=== PATIENT | female | born 1975 | race Caucasian/White ===

== ENCOUNTER 2017-08-01 17:08 | Inpatient (IN) | payer OTHER ==
[2017-08-01 17:35] VITALS: BMI 30.2
[2017-08-01] MEDS: Lactated Ringer's 1,000 ML IV SCH (17:45)
[2017-08-01] MEDS ORDERED: AMPicillin 2 GM in Sodium Chloride 0.9% 100 ML IVPB ONE (18:07)
[2017-08-01 18:11] LABS: BASO # 0.1 K/uL (0.0-0.2); BASO % 0.5 % (0.0-2.0); EOS # 0.4 K/uL (0.0-0.7); EOS % 4.3 % (0.0-4.0); HEMOGLOBIN 12.9 g/dL (12.0-16.0); LYMPH # 1.7 K/uL (1.0-4.3); LYMPH % 18.1 % (20.0-40.0); MEAN CELL VOLUME 90.3 fl (81.0-99.0); MEAN CORPUSCULAR HEMOGLOBIN 30.3 pg (27.0-31.0); MEAN CORPUSCULAR HGB CONC 33.5 g/dL (33.0-37.0); MONO # 0.8 K/uL (0.0-0.8); MONO % 8.4 % (0.0-10.0); NEUT # 6.5 K/uL (1.8-7.0); NEUT % 68.7 % (50.0-75.0); NRBC % 0.1 % (0.0-0.0); RBC 4.25 Mil/uL (3.80-5.20); RED CELL DISTRIBUTION WIDTH 14.9 % (11.5-14.5); WHITE BLOOD COUNT 9.4 K/uL (4.8-10.8)
--- NOTE | 2017-08-01 20:30 | OBADHP ---
Datetime: 08/01/2017 20:07 IP Chief Complaint Other: oligohydramnios/thyroid disease/AMA IP Adm Impression Other: olygohydramnios/thyroid disease Admit Comment, IP Provider: start on Cervidil induction Extremities - PN: Normal Abdomen - PN: Abnormal Back - PN: Normal Lungs - PN: Normal Heart - PN: Normal Thyroid - PN: Normal Neurologic - PN: Normal HEENT - PN: Normal General - PN: Normal Presentation-Admit: Cephalic FHR - Baseline A Provider: 140/150 Membranes, Provider: Intact Contraction Comments Provider: maryg Comments, ACOG Physical Exam: Abd gravid NT, sono confirmed cephalic presentation, ext no calf tende rness Gestation - Est Wks by US: 39.0 Pool Provider: Negative IP Hx Assessment: The History has been Reviewed and is Current Vital Signs Provider: Reviewed IP Chief Complaint: Other NICHD Variability Prov Fetus A: Moderate 6-25bpm NICHD Accel Fetus A IP Provider: 10X10 NICHD Decel Fetus A IP Provider: None Dilatation, Provider: FT Effacement, Provider: 20 Station, Provider: H Genitourinary Exam: Normal DTRs - PN: Normal IP Adm Impression: Term, intrauterine IP Admit Plan: Admit to unit; Initiate labor induction protocol
[2017-08-01] MEDS: AMPicillin 1 GM in Sodium Chloride 0.9% 100 ML IVPB SCH (22:30)
[2017-08-02] MEDS ORDERED: Oxytocin 30 units/LR 500ML 30 U/500 ML BAG IV ONE (01:03)
[2017-08-02] MEDS: AMPicillin 1 GM in Sodium Chloride 0.9% 100 ML IVPB SCH ×5 (02:35→18:23)
[2017-08-02] MEDS: Lactated Ringer's 1,000 ML IV SCH ×3 (02:37→18:15)
[2017-08-02] MEDS ORDERED: Fentanyl/Bupivacaine HCl 250 ML EPI ONE (18:22)
[2017-08-02] MEDS ORDERED: Lidocaine 1% Inj (20ml) ONE (21:58)
[2017-08-02] MEDS ORDERED: Oxycodone/Acetaminophen 5/325 mg Tab PO PRN (22:47)
--- NOTE | 2017-08-02 22:47 | OBDS ---
DELIVERY PERSONNEL Delivery Doctor: Vasu Smith MD Staple Cutter: Mirta Guerra RN Anesthesiologist: Indu MATERNAL INFORMATION Delivery Anesthesia: Epidural Medications in Delivery: Oxytocin 30 units Estimated Blood Loss (ml): QBL- 200 Placenta Cultured: No Maternal Complications: None Provider Comments: Delivered a living baby boy appears term cried spontaneously 9/9, AF scanty but clear Placenta complete and intact Small superficial vaginal-perineal tear noted and repaired as above Uterus contracted well no complications Tolerated procedure well. LABOR SUMMARY EDC: 08/07/2017 00:00 No. Babies in Womb: 1 Attempted: No Labor Anesthesia: Epidural LABOR INFORMATION Reason for Induction: Oligohydramnios Reason for Induction Other: AMA/thyroid disease Onset of Labor: 08/02/2017 17:43 Complete Dilatation: 08/02/2017 21:50 Cervical Ripening Agents: Cervidil Oxytocin: N/A Group B Beta Strep: Positive Antibiotics # of Doses: 5 Antibiotics Time of Last Dose: 1630 Steroids Given: None Reason Steroids Not Administered: Not Applicable MEMBRANES Membranes Rupture Method: Spontaneous Rupture of Membranes: 08/02/2017 19:49 Length of Rupture (hrs): 2.48 Amniotic Fluid Color: Clear Amniotic Fluid Amount: Scant Amniotic Fluid Odor: Normal STAGES OF LABOR Stage 1 hrs: 4 Stage 1 min: 7 Stage 2 hrs: 0 Stage 2 min: 28 Stage 3 hrs: 0 Stage 3 min: 7 Total Time in Labor hrs: 4 Total Time in Labor min: 42 VAGINAL DELIVERY Episiotomy: None Laceration Extension: First Degree Laceration Type: Perineal; Vaginal Laceration Repair: Yes Laceration Repair Note: small superficial vaginal/peineal laceration noted and repaired using a 2-0 chromic suture without any complications Initial Vag Sponge Count: 5 Final Vag Sponge Count: 5 Initial Vag Sharps Count: 1 Final Vag Sharps Count: 1 Sponge Count Correct: Yes Sharps Count Correct: Yes Count Comment: count correct and verified by RN CSECTION DELIVERY Primary Indication: N/A Secondary Indication: N/A CSection Incision: N/A Uterine Closure: N/A BABY A INFORMATION Infant Delivery Date/Time: 08/02/2017 22:18 Method of Delivery: Vaginal Born in Route : No : N/A Forceps: N/A Vacuum Extraction: N/A Shoulder Dystocia : No SHOULDER DYSTOCIA BABY A Infant Delivery Date/Time: 08/02/2017 22:18 PRESENTATION/POSITION BABY A Presentation: Cephalic Cephalic Presentation: Vertex Vertex Position: Left Occipital Anterior PLACENTA INFORMATION BABY A Placenta Delivery Time : 08/02/2017 22:25 Placenta Method of Delivery: Spontaneous Placenta Status: Delivered SCORES BABY A Heart Rate 1 min: >100 bpm Resp Effort 1 min: Good Cry Reflex Irritability 1 min: Cough or Sneeze or Pulls Away Muscle Tone 1 min: Active Motion Color 1 min: Body [place], Extremities Blue Resuscitation Effort 1 min: Tactile Stimulation SCORE 1 MIN: 9 Heart Rate 5 min: >100 bpm Resp Effort 5 min: Good Cry Reflex Irritability 5 min: Cough or Sneeze or Pulls Away Muscle Tone 5 min: Active Motion Color 5 min: Body [place], Extremities Blue Resuscitation Effort 5 min: Tactile Stimulation SCORE 5 MIN: 9 INFORMATION BABY A Gestational Age at Delivery: 39.2 Gestational Status: Term Infant Outcome : Liveborn Condition : Stable Sex: Male IDENTIFICATION/MEDS BABY A ID Band Number: [id number] ID Band Location: Left Leg; Left Arm WEIGHT/LENGTH BABY A Infant Birthweight (gms): 3235 Weight (lb): 7 Weight (oz): 2 CORD INFORMATION BABY A No. Cord Vessels: 3 Nuchal Cord : N/A Cord Blood Taken: Yes Suction: None ASSESSMENT BABY A Infant Complications: None Physical Findings at Delivery: Within Normal Limits Respirations: Appears Normal [facility] Called : No Transferred To: Remains with Mother
[2017-08-03] MEDS: Oxycodone/Acetaminophen 5/325 mg Tab PO PRN ×3 (01:05→09:51)
[2017-08-03] MEDS: Levothyroxine 112 MCG TAB PO SCH (06:43)
--- NOTE | 2017-08-03 08:50 | OBPPN ---
Datetime: 08/03/2017 08:45 PP Pain Prov: Within normal limits PP Pain Prov comment: No SOB, chest or leg pains PP Nausea Prov: Denies PP Flatus Prov: No PP Nausea Prov comment: no n/v PP Breasts Prov: Normal PP Lungs Prov: Normal PP Abdomen/Uterus Prov: Abnormal PP Vulva/Perineum Prov: Abnormal PP CVA Tenderness Prov: Normal PP Extremities Prov: Normal PP C/S Incision Prov: Not Applicable PP Progress Prov: Normal PP Comments Phys Exam Prov: breast NT not engorged Abd soft ND fundus firm below the umb Perineum re paired Ext no calf tenderness PP Impression Prov: Normal progression PP Plan Prov: Continue present management PP Progress Note Prov: CBC this am OOB and ambulation IP PP Procedures: None Vital Signs Provider PP: Reviewed
[2017-08-03 10:29] LABS: HEMOGLOBIN 11.4 g/dL (12.0-16.0); MEAN CELL VOLUME 90.5 fl (81.0-99.0); MEAN CORPUSCULAR HEMOGLOBIN 30.7 pg (27.0-31.0); RBC 3.71 Mil/uL (3.80-5.20); RED CELL DISTRIBUTION WIDTH 14.9 % (11.5-14.5); WHITE BLOOD COUNT 12.8 K/uL (4.8-10.8)
[2017-08-04] MEDS: Levothyroxine 112 MCG TAB PO SCH (06:39)
--- NOTE | 2017-08-04 10:30 | OBPPN ---
Datetime: 08/04/2017 10:26 PP Pain Prov: Within normal limits PP Pain Prov comment: No SOB, chest pains or leg pains PP Nausea Prov: Denies PP Flatus Prov: Yes PP Breasts Prov: Normal PP Heart Prov: Normal PP Lungs Prov: Normal PP Abdomen/Uterus Prov: Abnormal PP Lochia Prov: Normal PP Vulva/Perineum Prov: Abnormal PP CVA Tenderness Prov: Normal PP C/S Incision Prov: Not Applicable PP Progress Prov: Normal PP Comments Phys Exam Prov: Breast NE, NT; Abd soft ND, fundus firm below the umb. NT, perineum repa ired Ext no calf tenderness PP Impression Prov: Normal progression PP Plan Prov: Discharge PP Progress Note Prov: D/C home and continue PP care IP PP Procedures: None Vital Signs Provider PP: Reviewed
--- NOTE | 2017-08-04 10:32 | OBDCSUM ---
Datetime: 08/04/2017 08:03 Discharged to, Provider: Home Follow up at, Provider: Dr Smith Disch Instr Activity: Bedrest; May be up to bathroom; May be up for meals; May Shower Disch Instr Diet: Regular Discharge Instructions, Provider: Routine instructions given Discharge Diagnosis, Provider: Term Delivered Discharge Time: 08/04/2017 10:29 Follow up in weeks, Provider: 4-6 wks Disch Referrals: None Contraception discussed, Prov: Yes Disch Activity Restrictions: No exercising; No lifting; No driving; Minimize walking; Minimize stair -climbing; No sexual activity; Nothing in vagina - [place], tampons, douche Discharge Comment, Provider: Continue PNC vit and iron and pelvic rest Discharge Diagnosis Prov Other: olygohydramnios/thyroid disease AMA Contraception after Delivery: Undecided
[2017-08-04 17:28] VITALS: BP 120/70; PULSE 72; RESP 18; TEMP 98.7; O2SAT 100
== END 2017-08-04 12:50 | disposition home or self-care (01) | DRG 775 ==
LOC: EDSTATUS 17:18 → H.L&D 17:35 → H.OB/GYN 08-03 01:06
PROVIDERS: ADMIT Specialist; ATTEND Specialist
PROC: 4A1HXCZ Monitoring of Products of Conception, Cardiac Rate, External Approach (ICD-10-PCS; 2017-08-01)
PROC: 10E0XZZ Delivery of Products of Conception, External Approach (ICD-10-PCS; principal; 2017-08-02)
PROC: 0HQ9XZZ Repair Perineum Skin, External Approach (ICD-10-PCS; 2017-08-02)
DX: O41.03X0 Oligohydramnios, third trimester, not applicable or unspecified (principal); O99.284 Endocrine, nutritional and metabolic diseases complicating childbirth; O70.0 First degree perineal laceration during delivery; E07.9 Disorder of thyroid, unspecified; O99.820 Streptococcus B carrier state complicating pregnancy; O09.523 Supervision of elderly multigravida, third trimester; Z37.0 Single live birth; Z3A.39 39 weeks gestation of pregnancy